=== PATIENT | female | born 1995 | race Caucasian/White ===

== ENCOUNTER 2020-06-14 12:46 | Emergency (ER) | payer MEDICAID, SELFPAY ==
[2020-06-14 12:53] VITALS: PULSE 90; RESP 19; TEMP 36.6; BMI 52.2
[2020-06-14 13:10] LABS: UPreg QC Valid YES; Urine Pregnancy NEGATIVE (NEGATIVE)
== END 2020-06-14 13:50 | disposition left against medical advice (07) ==
PROVIDERS: Physician Assistant Medical; Emergency Provider Emergency Medicine
DX: R50.9 Fever, unspecified (principal)
CPT/HCPCS: 81025; 99283

== ENCOUNTER 2020-06-16 01:02 | Emergency (ER) | payer MEDICAID, SELFPAY ==
[2020-06-16 01:17] VITALS: BP 132/73; PULSE 115; RESP 20; TEMP 37.1; O2SAT 99; BMI 54.6
--- NOTE | 2020-06-16 01:25 | ED_ITS ---
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 Otherwise, she denies any current GI symptoms, or symptoms and is currently menstruating. Related Data Allergies Allergy/AdvReac Type Severity Reaction Status Date / Time SEAFOOD Allergy Unknown ANAPHYLAXIS Uncoded 04/18/20 19:33 Review of Systems Review of Systems: Pertinent positives and negatives as stated in HPI 10 point review of systems is otherwise negative. PMFSH Past Medical History Source: nursing notes reviewed Medical History Fatty liver Social History Social History Alcohol intake: never Smoking Status: Never smoker Use of substances other than those prescribed or required for medical reasons: No Advance Directives: No Physical Exam Vital Signs: Vital Signs: Last Vital Signs Temp 97.9 F 06/16/20 02:56 Pulse 83 06/16/20 02:56 Resp 16 06/16/20 02:56 BP 114/69 06/16/20 02:56 Pulse Ox 98 06/16/20 02:56 Body Mass Index 54.6 VITAL SIGNS: Reviewed. GENERAL: Well developed, well nourished, in no acute distress. HEAD: Normocephalic/atraumatic, EYES: PERRLA, EOMI intact without pain, no nystagmus/pallor/icterus noted EARS: Ext canals without abnormality, TMs non-bulging and non-erythematous NOSE: Nares patent bilateral OROPHARYNX: no oral lesions noted, posterior pharynx clear and non-erythematous without noted tonsillar enlargement/erythema/exudates NECK: Supple, no adenopathy LUNGS: Normal breath sounds. No adventitious sounds or accessory muscle use. SpO2<98> CARDIOVASCULAR: Regular rate and rhythm without noted murmurs, no JVD or lower extremity edema. ABDOMEN: Soft, non-tender, non-distended with bowel sounds. No rigidity. No guarding. No palpable masses or hernias noted MUSCULOSKELETAL: No tenderness, deformities, or effusions noted on gross inspection. EXTREMITIES: No cyanosis, clubbing or edema. SKIN: Inspection of the skin reveals no rashes, ulcerations, jaundice, pallor, or petechiae. NEUROLOGIC: Alert and oriented x 4. Strength and sensation to light touch were grossly intact x 4. Course Course Course Narrative: This is a 24-year-old female with history and clinical presentation consistent with likely viral syndrome although given that tonsils appeared somewhat enlarged will proceed with rapid strep in the absence cough. Patient was also tested for COVID-19 and provided with an albuterol treatment with overall improvement in symptoms and resolution of tachycardia. On re- evaluation patient is feeling much better, rapid strep is negative, and chest x- ray is without acute findings. All results and findings were discussed with patient at bedside and she knows that she will need to self quarantine until the results of the COVID-19 test called to her. Discharge Plan Discharge Clinical Impression: Acute viral syndrome Patient Disposition: Home, Self-Care Instructions: Viral Syndrome (ED) Additional Instructions: 1. continue to increase fluid hydration specifically with water. 2. Tylenol 1000 mg, orally, Every 6 hours as needed for temperatures greater than 100.4 or body aches. Do not exceed 4000 mg within 24 hours. 3. Ibuprofen 400 mg, orally with milk or food, every 6 hours as needed for temperatures greater than 100.4 or body aches. 4. you must self quarantine until the results of your COVID-19 test were called to. In addition please follow call [place] mandated precautions and guidelines for COVID-19. The patient and/or family acknowledge understanding of results (as applicable), diagnosis, treatment plan, need for follow up, and symptoms that should prompt a return to the emergency room. Referrals: Physician,Unknown [Primary Care Provider] - 2 days
--- NOTE | 2020-06-16 01:40 | XR_ITS ---
EXAMINATION: CHEST 1 VIEW CLINICAL INFORMATION: Cough. COMPARISON: 09/13/2019. TECHNIQUE: An AP view of the chest is provided. FINDINGS: The cardiac silhouette is not enlarged. The mediastinal and hilar contours are unremarkable. There are neither pleural effusions nor pneumothoraces. There are no consolidations. The osseous structures are unremarkable. XR/XR chest 1V IMPRESSION: No evidence for acute disease.
[2020-06-16 02:56] VITALS: BP 114/69; PULSE 83; RESP 16; TEMP 36.6; O2SAT 98
[2020-06-16] MEDS: Albuterol Sulfate (0.083%) 2.5 MG/3 ML VIAL.NEB 5 MG INHALE (03:18)
== END 2020-06-16 04:00 | disposition home or self-care (01) ==
PROVIDERS: Emergency Provider Student in an Organized Health Care Education/Training Program
DX: B34.9 Viral infection, unspecified (principal); R50.9 Fever, unspecified; R05 Cough; Z20.828 Contact with and (suspected) exposure to other viral communicable diseases
CPT/HCPCS: 71045; 87071; 87147; 87880; 94640; 99284; U0003